=== PATIENT | female | born 1970 | race Caucasian/White ===

== ENCOUNTER → 2016-12-10 | Outpatient (CLI) | payer OTHER ==
[~2016-12-10] MED LIST: CALC-192 PO; LORA10TA75 PO
== END | disposition home or self-care (01) ==
LOC: ROC 15:11
PROVIDERS: ATTEND Radiology Radiation Oncology
DX: C50.412 Malignant neoplasm of upper-outer quadrant of left female breast (principal); Z92.21 Personal history of antineoplastic chemotherapy; Z90.12 Acquired absence of left breast and nipple
CPT/HCPCS: 99212; G0463

== ENCOUNTER → 2017-02-15 | Outpatient (CLI) | payer OTHER | END | disposition home or self-care (01) | LOC: CFH 09:10 | PROVIDERS: ATTEND Internal Medicine Hematology & Oncology | DX: C50.412 Malignant neoplasm of upper-outer quadrant of left female breast (principal) | CPT/HCPCS: 76641; G0204 ==

== ENCOUNTER → 2017-05-27 | Outpatient (CLI) | payer OTHER | END | disposition home or self-care (01) | LOC: ROC 14:49 | PROVIDERS: ATTEND Radiology Radiation Oncology | DX: C50.412 Malignant neoplasm of upper-outer quadrant of left female breast (principal); Z92.3 Personal history of irradiation | CPT/HCPCS: 99212; G0463 ==

== ENCOUNTER → 2017-08-13 | Outpatient (CLI) | payer OTHER | END | disposition home or self-care (01) | LOC: PETCFH 09:21 | PROVIDERS: ATTEND Internal Medicine Hematology & Oncology | DX: C50.412 Malignant neoplasm of upper-outer quadrant of left female breast (principal) | CPT/HCPCS: 78306; A9552 ==

== ENCOUNTER → 2017-08-16 | Outpatient (CLI) | payer OTHER ==
[~2017-08-16] MED LIST changes: +OMNIPAQUE 350 MG/ML, 75ML BOTTLE ONE
== END | disposition home or self-care (01) ==
LOC: CFH 10:17
PROVIDERS: ATTEND Internal Medicine Hematology & Oncology
DX: N63.11 Unspecified lump in the right breast, upper outer quadrant (principal); R22.1 Localized swelling, mass and lump, neck; R22.2 Localized swelling, mass and lump, trunk; Z85.3 Personal history of malignant neoplasm of breast; Z90.12 Acquired absence of left breast and nipple
CPT/HCPCS: 70487; 76536; 76641; 77065; Q9967

== ENCOUNTER → 2018-02-17 | Outpatient (CLI) | payer OTHER ==
[~2018-02-17] MED LIST changes: -OMNIPAQUE 350 MG/ML, 75ML BOTTLE ONE
== END | disposition home or self-care (01) ==
LOC: CFH 11:33
PROVIDERS: ATTEND Internal Medicine Hematology & Oncology
DX: Z12.31 Encounter for screening mammogram for malignant neoplasm of breast (principal); Z85.3 Personal history of malignant neoplasm of breast; Z90.12 Acquired absence of left breast and nipple
CPT/HCPCS: 77063; 77067

== ENCOUNTER → 2018-05-17 | Outpatient (CLI) | payer OTHER | END | disposition home or self-care (01) | LOC: CFH 15:04 | PROVIDERS: ATTEND Internal Medicine Hematology & Oncology | DX: C50.412 Malignant neoplasm of upper-outer quadrant of left female breast (principal); Z90.12 Acquired absence of left breast and nipple | CPT/HCPCS: 76377; 76642 ==

== ENCOUNTER → 2018-07-27 | Outpatient (CLI) | payer OTHER ==
[~2018-07-27] MED LIST changes: +GADOBUTROL 7.5 MMOL/7.5 ML PFS ONE
== END | disposition home or self-care (01) ==
LOC: CFH 12:46
PROVIDERS: ATTEND Specialist
DX: D18.09 Hemangioma of other sites (principal)
CPT/HCPCS: 70553; A9585

== ENCOUNTER → 2018-08-08 | Outpatient (CLI) | payer OTHER ==
[~2018-08-08] MED LIST changes: -GADOBUTROL 7.5 MMOL/7.5 ML PFS ONE
== END | disposition home or self-care (01) ==
LOC: ROC 08:39
PROVIDERS: ATTEND Radiology Radiation Oncology
DX: C50.412 Malignant neoplasm of upper-outer quadrant of left female breast (principal)
CPT/HCPCS: 99212; G0463

== ENCOUNTER → 2019-02-20 | Outpatient (CLI) | payer OTHER | END | disposition home or self-care (01) | LOC: CFH 09:35 | PROVIDERS: ATTEND Internal Medicine Hematology & Oncology | DX: Z12.31 Encounter for screening mammogram for malignant neoplasm of breast (principal); C50.412 Malignant neoplasm of upper-outer quadrant of left female breast | CPT/HCPCS: 76641; 77063; 77067 ==

== ENCOUNTER 2019-03-02 07:35 | Outpatient (CLI) | payer OTHER | END 2019-03-02 23:59 | disposition home or self-care (01) | LOC: ROC 07:35 | PROVIDERS: ATTEND Radiology Radiation Oncology | DX: C50.412 Malignant neoplasm of upper-outer quadrant of left female breast (principal) | CPT/HCPCS: 99212; G0463 ==

== ENCOUNTER 2020-02-28 07:31 | Outpatient (CLI) | payer OTHER | END 2020-02-28 23:59 | disposition home or self-care (01) | LOC: CFH 07:31 | PROVIDERS: ATTEND Internal Medicine Hematology & Oncology | DX: Z12.31 Encounter for screening mammogram for malignant neoplasm of breast (principal); C50.412 Malignant neoplasm of upper-outer quadrant of left female breast; Z85.3 Personal history of malignant neoplasm of breast | CPT/HCPCS: 76641; 77067 ==

== ENCOUNTER → 2020-04-22 | Outpatient (CLI) | payer OTHER | END | disposition home or self-care (01) | LOC: ROC 11:30 | PROVIDERS: ATTEND Radiology Radiation Oncology | DX: Z08 Encounter for follow-up examination after completed treatment for malignant neoplasm (principal); Z85.3 Personal history of malignant neoplasm of breast | CPT/HCPCS: 99212; G0463 ==

== ENCOUNTER → 2021-03-03 | Outpatient (CLI) | payer OTHER | END | disposition home or self-care (01) | LOC: CFH 09:22 | PROVIDERS: ATTEND Internal Medicine Hematology & Oncology | DX: Z12.31 Encounter for screening mammogram for malignant neoplasm of breast (principal); Z12.39 Encounter for other screening for malignant neoplasm of breast; C50.412 Malignant neoplasm of upper-outer quadrant of left female breast | CPT/HCPCS: 76641; 77063; 77067 ==